=== PATIENT | male | born 1960 | race Caucasian/White ===

== ENCOUNTER 2020-05-05 14:06 | Emergency (ER) | payer OTHER, SELFPAY ==
--- NOTE | 2020-05-05 14:18 | ECG_ITS ---
Test Reason : SYNCOPY Blood Pressure : / mmHG Vent. Rate : 060 BPM Atrial Rate : 060 BPM P-R Int : 128 ms QRS Dur : 110 ms QT Int : 422 ms P-R-T Axes : 021 000 013 degrees QTc Int : 422 ms Normal sinus rhythm Incomplete right bundle branch block Borderline ECG No previous ECGs available Referred By: Nik Solis Electronically Signed By:Ramón Head
[2020-05-05 14:19] VITALS: BP 103/50; BP 119/51; PULSE 64; RESP 16; TEMP 36.4; O2SAT 100; O2SAT 99; BMI 23.6
--- NOTE | 2020-05-05 14:19 | CT_ITS ---
EXAMINATION: CT ABDOMEN AND PELVIS WITHOUT CONTRAST CLINICAL INFORMATION: Left lower quadrant pain. Evaluate for diverticulitis. COMPARISON: None TECHNIQUE: Multidetector volumetric imaging was performed from the superior aspect of the liver through the pubic symphysis. Sagittal and coronal reformatted images were obtained on the technologist's workstation. This CT examination was performed using dose optimization techniques as appropriate, variously including the following: *Automated exposure control *Adjustment of mA and/or kV according to patient size (this includes techniques or standardized protocols for targeted exams where dose is matched to indication/reason for exam; i.e. extremities or head) *Use of iterative reconstruction technique DLP: 635 mGy-cm FINDINGS: LUNG BASES: The visualized lung bases are unremarkable. LIVER, GALLBLADDER, AND BILIARY TREE: The liver is normal in size, shape, and attenuation. No focal hepatic lesion or biliary ductal dilatation is present. The gallbladder is unremarkable with no evidence of radiopaque gallstones, gallbladder wall thickening, or obvious pericholecystic inflammatory changes. PANCREAS: Unremarkable. SPLEEN: Unremarkable. ADRENAL GLANDS: Unremarkable. KIDNEYS AND URETERS: There are small bilateral nonobstructing renal stones. There There is a fluid collection along the right posterior peritoneal reflection inferior to the lower pole of the right kidney. This measures 1.5 x 3 x 5.6 cm, for example axial image 46 series 3 and sagittal reconstructed image 90. This contains some air and several small calcifications. There are small collections of air seen in the peritoneal fat superior and lateral to this collection for example axial image 38 and 39 series 3. There is also a small air collection in the retroperitoneum anterior to the right psoas muscle axial image 47 series 3. There is stranding of the fat and some high attenuation questionable for calcifications in the subcutaneous fat and skin thickening overlying this region. It is uncertain whether this could be related to previous percutaneous access for urolithiasis in the procedure. The right psoas muscle is enlarged compared to the left. There is high attenuation in the right psoas muscle questionable for a bone graft material. A discrete fluid collection in the right psoas muscle is not appreciated. . BLADDER: There is a small amount of air in the bladder. The bladder is otherwise unremarkable. GASTROINTESTINAL TRACT: The stomach is filled with liquid and food. There is stool in the colon questionable for constipation. Diverticulosis. No evidence of diverticulitis is seen. Small and large bowel is otherwise unremarkable. The appendix is unremarkable. ABDOMINAL WALL: No significant hernia is appreciated. LYMPH NODES: Normal. There is a irregularly shaped calcification adjacent to the left external iliac vessels in the region of the high left inguinal canal and small amount of surrounding fluid, question related to previous surgery. VASCULAR: Unremarkable. PELVIC VISCERA: Unremarkable. OSSEOUS STRUCTURES: There are postsurgical changes to the lower lumbar spine with prosthetic disc at L3-L4, L4-L5 and L5-S1. There is posterior fusion hardware and interpedicular screws at L3 and L4. There is extensive bone graft material. There is overlying fluid and air seen in the postsurgical region. There is a superficial fluid collection just deep to the skin containing fluid and air from L1 to S1. This measures 2.5 x 8.4 x 15 cm in AP transverse and longitudinal dimension. CT/CT abdomen pelvis wo con IMPRESSION: Diverticulosis. No evidence of diverticulitis. Stool throughout the colon suggestive of constipation. Small bilateral nonobstructing renal stones. Fluid collection along the right posterior peritoneal reflection and scattered foci of retroperitoneal air along the lateral peritoneal reflection inferior to the liver and lateral to the right kidney and anterior to the right psoas muscle. Postsurgical changes to the spine from L3-L4 to L5-S1. Enlarged right psoas muscle. Discrete psoas fluid collection is not appreciated. Superficial fluid collection from L1 to S1 containing fluid and small amount of air measuring 2.5 x 8.5 x 15 cm. Small amount of air in the bladder. Clinical correlation i.e. has the patient had recent urologic procedure or recently catheterized recommended.
--- NOTE | 2020-05-05 14:52 | ED.ABDPAIN ---
HPI - Abdominal Pain General Chief Complaint: Nausea/Vomiting/Diarrhea Stated Complaint: ABD PAIN, HX OF BACK SURGERY WEEKS AGO,LOW BP 86/4 Time Seen by Provider: 05/05/20 14:18 Source: patient Mode of arrival: EMS Limitations: no limitations History of Present Illness HPI narrative: Patient has spinal fusion surgery on 04/22 in [place] was doing much better will constipated for 1 day went to the bathroom to move his bowels had severe abdominal pain followed by diaphoresis and near-syncope episode blood pressure was 80 systolic when EMS reached patient was diaphoretic nauseated vomited 1 time and felt little better but still complaining of pain in the left lower abdomen MD elicited complaint: abdominal pain Pertinent past history: constipation Onset (ago): minute(s) Pain Consistency: constant Location: LLQ Severity: moderate Quality: cramping Radiation: none Migration to: no migration Exacerbating factors: nothing Relieving factors: nothing Associated symptoms: nausea, vomiting, constipation and syncope Related Data Allergies Allergy/AdvReac Type Severity Reaction Status Date / Time tuberculin, purified protein Allergy Unknown SWELLING Verified 05/05/20 14:26 deriva [From TUBERSOL] alcohol Allergy Itching Verified 05/05/20 14:26 [From Mastisol Adhesive] gum mastic Allergy Itching Verified 05/05/20 14:26 [From Mastisol Adhesive] methyl salicylate Allergy Itching Verified 05/05/20 14:26 [From Mastisol Adhesive] storax Allergy Itching Verified 05/05/20 14:26 [From Mastisol Adhesive] Review of Systems Constitutional: Reports no additional constitutional complaints, Denies chills and Denies fever(s) Eyes: Reports no additional eye complaints Reports system reviewed and no additional complaints, except as documented Cardiovascular: Reports no additional cardiovascular complaints Respiratory: Reports no additional respiratory complaints Gastrointestinal: Reports as per HPI, Reports abdominal pain, Reports constipation and Reports GI cramping Genitourinary: Reports no additional male genitourinary complaints Musculoskeletal: Reports no additional musculoskeletal complaints Denies convulsions Psychiatric: Reports no additional psychiatric complaints Physical Exam Vital Signs: Vital Signs: Last Vital Signs Temp 97.5 F 05/05/20 16:55 Pulse 61 05/05/20 16:55 Resp 20 05/05/20 16:55 BP 144/67 H 05/05/20 16:55 Pulse Ox 98 05/05/20 16:55 Body Mass Index 23.6 Course Course Course Narrative: Patient with near syncope episode with abdominal pain no acute pathology was noticed in CT scan of abdomen except postop changes in the back with possible infection/inflammation. Case discussed with radiologist advised MRI with contrast. In the ER patient starting having chills waiting for the urine started on Zosyn for now plan for admission once MRI is back which is unlikely to be source of infection. Case signed out to Dr. Mullen for disposition and review of MRI MDM - Abdominal Pain MDM Narrative Medical decision making narrative: Patient's acute abdominal pain post off for the back surgery CT scan did not show any bowel obstruction , showed post op changes and diverticulosis, has elevated lactic acid 2.9 and white count of 12.7 for patient patient feeling much better from the back pain. No fever or chills. Case discussed with radiologist changes in the back likely from postop unable to be sure whether infection or just inflammation, per patient patient does not have much pain in the back as such, Will admit patient for further evaluation including CT scan with IV contrast/MRI will give IV antibiotics prophylactically Differential Diagnosis Differential diagnosis: Likely abdominal pain, bowel perforation and mesenteric ischemia Lab Data Attestation: I reviewed the patient's lab results. Result diagrams: 05/05/20 14:57 05/05/20 15:10 Labs: Lab Results 05/05/20 05/05/20 05/05/20 Range/Units 14:57 14:57 14:57 WBC 12.7 H (4.8-10.8) X10*3/uL RBC 2.98 L (4.60-5.80) X10*6/uL Hgb 9.2 L (14.0-18.0) g/dl Hct 27.4 L (42-52) % MCV 91.9 (80-98) fL MCH 30.9 (27.0-33.0) pg MCHC 33.6 (31.0-36.0) g/dl RDW 12.2 (11.0-16.0) % Plt Count 814 H (160-400) X10*3/uL MPV 8.1 L (9.4-12.4) fL Immature Gran % (Auto) 0.8 H (0.0-0.4) % Neut % (Auto) 79.0 H (45-73) % Lymph % (Auto) 12.6 L (20-40) % [place] % (Auto) 5.7 (2-11) % Eos % (Auto) 1.4 (0-4) % Baso % (Auto) 0.5 (0-2) % Lymph # (Auto) 1.6 (1.2-4.9) X10*3/uL [place] # (Auto) 0.7 (0.1-1.2) X10*3/uL Eos # (Auto) 0.2 (0.0-0.4) X10*3/uL Baso # (Auto) 0.1 (0.0-0.2) X10*3/uL Abs Immat Gran (auto) 0.10 H (0.00-0.03) X10*3/uL Absolute Neuts (auto) 10.1 H (2.0-8.3) X10*3/uL Absolute Nucleated RBC 0.000 (0.0-0.012) X10*3/uL Nucleated RBC % (auto) 0.0 (0.0-0.2) /100WBC PT 13.2 H (10.8-13.0) SEC INR 1.1 (0.9-1.1) Sodium (135-145) mmol/L Potassium (3.3-5.1) mmol/l Chloride (96-108) mmol/L Carbon Dioxide (22-29) mmol/L Anion Gap (12-20) BUN (9-16) mg/dL Creatinine (0.5-1.4) mg/dL Estim Creat Clear Calc Estimated GFR Random Glucose (60-115) mg/dL Lactic Acid 2.9 H* (0.5-2.0) mmol/L Calcium (8.4-10.2) mg/dL Total Bilirubin (0.0-1.0) mg/dL Direct Bilirubin (0.0-0.5) mg/dL AST (5-37) U/L ALT (0-40) U/L Alkaline Phosphatase (39-117) U/L Troponin I High Sens (<3.5-35.0) ng/L Total Protein (6.5-8.0) g/dL Albumin (3.5-5.0) g/dL Lipase (8-78) U/L 01/25/21 01/25/21 01/25/21 Range/Units 14:57 14:57 15:10 WBC (4.8-10.8) X10*3/uL RBC (4.60-5.80) X10*6/uL Hgb (14.0-18.0) g/dl Hct (42-52) % MCV (80-98) fL MCH (27.0-33.0) pg MCHC (31.0-36.0) g/dl RDW (11.0-16.0) % Plt Count (160-400) X10*3/uL MPV (9.4-12.4) fL Immature Gran % (Auto) (0.0-0.4) % Neut % (Auto) (45-73) % Lymph % (Auto) (20-40) % [place] % (Auto) (2-11) % Eos % (Auto) (0-4) % Baso % (Auto) (0-2) % Lymph # (Auto) (1.2-4.9) X10*3/uL [place] # (Auto) (0.1-1.2) X10*3/uL Eos # (Auto) (0.0-0.4) X10*3/uL Baso # (Auto) (0.0-0.2) X10*3/uL Abs Immat Gran (auto) (0.00-0.03) X10*3/uL Absolute Neuts (auto) (2.0-8.3) X10*3/uL Absolute Nucleated RBC (0.0-0.012) X10*3/uL Nucleated RBC % (auto) (0.0-0.2) /100WBC PT (10.8-13.0) SEC INR (0.9-1.1) Sodium 140 (135-145) mmol/L Potassium 4.2 (3.3-5.1) mmol/l Chloride 104 (96-108) mmol/L Carbon Dioxide 25 (22-29) mmol/L Anion Gap 15 (12-20) BUN 20 H (9-16) mg/dL Creatinine 1.08 (0.5-1.4) mg/dL Estim Creat Clear Calc 76.0 Estimated GFR > 60 Random Glucose 132 H (60-115) mg/dL Lactic Acid (0.5-2.0) mmol/L Calcium 8.9 (8.4-10.2) mg/dL Total Bilirubin 0.4 (0.0-1.0) mg/dL Direct Bilirubin 0.2 (0.0-0.5) mg/dL AST 25 (5-37) U/L ALT 27 (0-40) U/L Alkaline Phosphatase 69 (39-117) U/L Troponin I High Sens 4.2 (<3.5-35.0) ng/L Total Protein 6.1 L (6.5-8.0) g/dL Albumin 3.8 (3.5-5.0) g/dL Lipase 49 (8-78) U/L Discharge Plan Discharge Clinical Impression: Near syncope [facility] Past Medical History Medical History (Updated 05/05/20 @ 17:02 by Nik Solis MD) Diabetes 1.5, managed as type 1 Hypercholesteremia Hypertension Social History Social History Advance Directives: No Advance Directives Information Provided: No
[2020-05-05 15:04] LABS: MANUAL DIFF FLAG NO
[2020-05-05 15:07] LABS: Basophils Absolute Auto 0.1 X10*3/uL (0.0-0.2); Basophils Percent Auto 0.5 % (0-2); Eosinophils Absolute Auto 0.2 X10*3/uL (0.0-0.4); Eosinophils Percent Auto 1.4 % (0-4); Hematocrit 27.4 % (42-52); Hemoglobin 9.2 g/dl (14.0-18.0); Imm Gran Pct Auto 0.8 % (0.0-0.4); Lymphocytes Absolute Auto 1.6 X10*3/uL (1.2-4.9); Lymphocytes Percent Auto 12.6 % (20-40); Mean Corpuscular HGB Conc 33.6 g/dl (31.0-36.0); Mean Corpuscular Hemoglobin 30.9 pg (27.0-33.0); Mean Corpuscular Volume 91.9 fL (80-98); Mean Platelet Volume 8.1 fL (9.4-12.4); Monocytes Absolute Auto 0.7 X10*3/uL (0.1-1.2); Monocytes Percent Auto 5.7 % (2-11); Neutrophils Absolute Auto 10.1 X10*3/uL (2.0-8.3); Red Blood Count 2.98 X10*6/uL (4.60-5.80); Red Cell Distribution Width 12.2 % (11.0-16.0); White Blood Count 12.7 X10*3/uL (4.8-10.8)
[2020-05-05 15:10] LABS: Platelet Count 814 X10*3/uL (160-400)
[2020-05-05] MEDS: 0.9 % Sodium Chloride 1,000 ML 999 ML IVCONT ×3 (15:15→16:29)
[2020-05-05 15:19] VITALS: BP 90/41; PULSE 57; RESP 16
[2020-05-05 15:19] LABS: INTERNATIONAL NORM RATIO 1.1 (0.9-1.1); Prothrombin Time 13.2 SEC (10.8-13.0)
[2020-05-05 15:29] LABS: Lipase 49 U/L (8-78)
[2020-05-05 15:33] LABS: Lactic Acid 2.9 mmol/L (0.5-2.0)
[2020-05-05 15:36] LABS: Troponin-I High Sensitivity 4.2 ng/L (<3.5-35.0)
[2020-05-05 15:42] LABS: Alanine Aminotransferase 27 U/L (0-40); Albumin Level 3.8 g/dL (3.5-5.0); Alkaline Phosphatase 69 U/L (39-117); Anion Gap 15 (12-20); Aspartate Amino Transferase 25 U/L (5-37); Bilirubin Direct 0.2 mg/dL (0.0-0.5); Bilirubin Total 0.4 mg/dL (0.0-1.0); Blood Urea Nitrogen 20 mg/dL (9-16); Calcium 8.9 mg/dL (8.4-10.2); Carbon Dioxide 25 mmol/L (22-29); Chloride 104 mmol/L (96-108); Estimated Glomerular Filt Rate > 60; Glucose Random 132 mg/dL (60-115); Potassium 4.2 mmol/l (3.3-5.1); Sodium 140 mmol/L (135-145); Total Protein 6.1 g/dL (6.5-8.0)
--- NOTE | 2020-05-05 16:15 | XR_ITS ---
EXAMINATION: XR CHEST CLINICAL INFORMATION: Postop. COMPARISON: None TECHNIQUE: Frontal view of the chest was obtained. FINDINGS: Lungs are well-expanded and clear of acute process. Heart size and pulmonary vascularity is normal. There is mild spondylosis of dorsal spine. No lytic process seen. XR/XR chest 1V IMPRESSION: Unremarkable chest examination.
[2020-05-05] MEDS: Morphine Sulfate 4 MG/ML CARTRIDGE IVPUSH ×2 (16:29→21:33)
[2020-05-05] MEDS: Piperacillin Sodium/Tazobactam 3.375 GM in 0.9 % Sodium Chloride 50 ML IV (16:29)
--- NOTE | 2020-05-05 16:33 | MR_ITS ---
EXAMINATION: MR LUMBAR SPINE WITHOUT AND WITH CONTRAST CLINICAL INFORMATION: Spinal fusion 2 weeks prior. Postoperative pain. Syncope. COMPARISON: CT abdomen and pelvis from 05/05/2020. TECHNIQUE: MRI of the lumbar spine was obtained using routine sequences without and following the administration of 7.5 mL of Gadavist intravenous contrast. FINDINGS: Instrumented posterior fusion of L3-L4 with bilateral paired interpedicular screws. Disc spacers in place from L3-S1. Changes of L3-L5 laminectomies with partial L3 facetectomies. Normal anatomic alignment. Mild degenerative disc disease at T12-L1 and L1-L2. Mixed Modic type discogenic endplate changes throughout the lumbar spine. There appears to be mild Modic type I discogenic edema at the recently fused L3-L4 level. Otherwise, no overtly suspicious marrow edema or enhancement. The vertebral body heights are largely maintained. The conus medullaris terminates at the level of L1-L2. The distal spinal cord is normal in appearance. Extensive postoperative changes of the back and right lateral paraspinal musculature following recent surgery. There is a fluid collection within the laminectomy bed at the level of L3-L4, measuring upwards of 2.2 x 2 x 3.9 cm. There is also a fluid collection within the subcutaneous tissues of the back from the level of L1-S1, measuring 6.5 x 2.5 x 14.4 cm. Postsurgical changes extending through the right psoas musculature at the level of L3-L4 with moderate edema and enhancement along the surgical tract. Minimal fluid collection within the body of the psoas musculature at this level, measuring 3.3 x 1.1 x 1.5 cm. The mild associated enhancement with these postsurgical changes is nonspecific but likely within expected limitations following recent surgery. Mild engorgement of the epidural space from L4-S1. No overt epidural collection. Otherwise, no abnormal contrast enhancement. Limited evaluation of the intra-abdominal structures without significant abnormalities. The abdominal aorta is of normal contour and caliber. AXIAL SPINAL LEVELS: L1-L2: Mild diffuse disc bulge. There is mild bilateral facet joint arthropathy. There is no neural foraminal stenosis. There is no spinal canal stenosis. L2-L3: Shallow diffuse disc bulge. There is moderate bilateral facet joint arthropathy. There is no neural foraminal stenosis. There is no spinal canal stenosis. L3-L4: Fused at this level. Mild diffuse disc bulge. Bilateral laminectomy and partial facetectomies. There is moderate right and no left neural foraminal stenosis. A fluid collection within the laminectomy bed is associated with moderate to severe spinal canal stenosis at this level. L4-L5: Fused at this level. There is moderate bilateral facet joint arthropathy with bone graft material along the posterior aspects of the facets. There is moderate bilateral neural foraminal stenosis. Posterior decompression. There is no spinal canal stenosis. L5-S1: Mild diffuse disc bulge with small central disc protrusion. There is moderate bilateral facet joint arthropathy with bone graft material along the posterior aspects of the facets. There is moderate left worse than right neural foraminal stenosis. Posterior decompression. There is no spinal canal stenosis. MR/MR lumbar spine wo/w con IMPRESSION: Extensive post surgical changes of the back and right paraspinal musculature following recent posterior fusion of L3-L4 with posterior decompression from L3-L5. Fluid collections within the laminectomy bed at L3-L4, the right psoas musculature at L3-L4, and the subcutaneous tissues from L1-S1 likely within expected limitations following recent surgery. However, the fluid collection within the laminectomy bed at L3-L4 does exacerbate moderate to severe spinal canal stenosis at this level at this time. No additional spinal canal stenoses. Moderate neural foraminal narrowings from L3-S1. No overtly suspicious marrow edema/enhancement.
[2020-05-05 16:55] VITALS: BP 144/67; PULSE 61; RESP 20; TEMP 36.4; O2SAT 98
--- NOTE | 2020-05-05 17:01 | PC.NURSE ---
PT TO MRI
[2020-05-05 17:02] LABS: Reflex Lactate? Lactic Acid Added
[2020-05-05 18:33] VITALS: BP 129/63; PULSE 68; RESP 20; TEMP 36.9; O2SAT 96
--- NOTE | 2020-05-05 18:36 | PC.NURSE ---
PT DIAPHORETIC AND PALE ON ARRIVAL, BECAME HYPOTENSIVE, INITIALYL REPORTING REDUCED PAIN AND REFUSING PAIN MEDICATION. FLUIDS HUNG ORDERED. LATER DEVELOPED SEVERE LLQ PAIN, MOP ADMINISTERED. DENIES NAUSEA. NO EPISODES OF VOMITING SINCE ARRIVAL. BP NOW WNL. PT MENTATING WELL SINCE ARRIVAL, SPEAKING IN CLEAR FULL SENTENCES, RESP EVEN AND NONLABOURED.
[2020-05-05 18:50] LABS: COVID-19 Test Negative (Negative)
[2020-05-05 19:07] LABS: Glucose Urine UA NEG (NEG); Leukocyte Esterase Urine NEG (NEG); Nitrite Urine NEG (NEG); PH 6.5 (5.0-8.0); Urine Blood NEG (NEG); Urine Ketones NEG (NEG); Urine Protein NEG (NEG-TRACE)
[2020-05-05 19:10] LABS: Appearance Urine HAZY; Color Urine YELLOW
--- NOTE | 2020-05-05 20:23 | PC.NURSE ---
This PCT applie a catheter, official initial output was 8 00 mL.
[2020-05-05 20:44] VITALS: BP 153/68; PULSE 76; RESP 14; O2SAT 98
[2020-05-05 20:48] LABS: Glucose, Whole Blood 180 mg/dL (60-115)
[2020-05-05 21:33] VITALS: RESP 16
[2020-05-05] MEDS: ondansetron HCL 4 MG/2 ML VIAL IVPUSH (21:33)
== END 2020-05-05 22:30 | disposition home or self-care (01) ==
PROVIDERS: Internal Medicine; Emergency Provider Emergency Medicine Emergency Medical Services; PCP Internal Medicine
DX: R55 Syncope and collapse (principal); R10.32 Left lower quadrant pain; Z20.822 Contact with and (suspected) exposure to COVID-19; K57.90 Diverticulosis of intestine, part unspecified, without perforation or abscess without bleeding; Z98.890 Other specified postprocedural states; E10.9 Type 1 diabetes mellitus without complications; I10 Essential (primary) hypertension
CPT/HCPCS: 36415; 71045; 72158; 74176; 80048; 80076; 81003; 82947; 83605; 83690; 84484; 85025; 85610; 87040; 87635; 93005; 96361; 96365; 96375; 96376; 99285; A9585; J2270; J2405; J2543